=== PATIENT | male | born 1980 | race Hispanic/Latino ===

== ENCOUNTER 2019-05-18 04:48 | Emergency (ER) | payer OTHER, SELFPAY ==
--- NOTE | 2019-05-18 04:54 | DI.RAD.S_ITS ---
PROCEDURE: XR FINGER LT MIN 2V INDICATIONS: crush injury, tissue loss TECHNIQUE: AP hand, 2 views of the 4th finger(s) acquired. COMPARISON: None. FINDINGS: Bones: There is a comminuted, mildly to moderately displaced fracture of the distal aspect of the distal phalanx of the 4th finger. No additional fractures are seen. Soft tissues: Associated soft tissue injury is seen. IMPRESSION: Comminuted fracture of the distal aspect of the distal phalanx of the 4th finger. Dictated by: Levon Aj M.D. on 05/18/2019 at 8:46 Approved by: Levon Aj M.D. on 05/18/2019 at 8:47
[2019-05-18 04:55] VITALS: BP 137/105; PULSE 62; RESP 20; TEMP 36.8; O2SAT 94
[2019-05-18] MEDS: TET,DIPH,PERTUSS(ACELL),VAC/PF 0.5 ML SYRINGE IM (04:58)
--- NOTE | 2019-05-18 05:11 | ED.UPPEXIN ---
HPI - Extremity Injury (Upper) General Chief Complaint: Extremity Injury, Upper Stated Complaint: Left ring finger injury at work Time Seen by Provider: 05/18/19 04:51 Source: patient Mode of arrival: Ambulatory Limitations: no limitations History of Present Illness HPI narrative: 38-year-old male nonsmoker with noncontributory medical history presents with a work related injury that was suffered just prior to arrival. He crushed the tip of his left ring finger when a large heavy slab of wood fell down. He denies any other injury and has a full but painful range of motion of left hand. He is right-hand dominant. His tetanus will need to be updated today. He presented with his hand wrapped in a dressing. MD complaint: injury to: left Onset (ago): minute(s) Other Extremity Injury: Left: fingers Other injuries: none Handedness: right Place: work Severity: moderate Relieving factors: rest Exacerbating factors: movement of extremity Context: direct blow Associated symptoms: denies other symptoms Treatments prior to arrival: bandage Related Data Previous Rx's Medication Instructions Recorded cephalexin [Keflex] 500 mg PO QID 7 Days #28 cap 05/18/19 hydrocodone-acetaminophen 1 tab PO Q4-6H PRN #10 tab 05/18/19 Review of Systems Constitutional Constitutional: Denies chills, Denies fatigue, Denies fever(s), Denies frequent falls, Denies lethargy and Denies weakness Eyes Eyes: Denies change in vision, Denies eye discharge, Denies irritation and Denies loss of vision ENT Ears, Nose, Mouth, and Throat: Denies change in voice, Denies dizziness, Denies neck pain, Denies sore throat and Denies throat swelling Cardiovascular Cardiovascular: Denies chest pain, Denies irregular heart rhythm, Denies lightheadedness, Denies palpitations, Denies dyspnea, Denies dyspnea on exertion and Denies orthopnea Respiratory Respiratory: Denies cough, Denies dyspnea, Denies dyspnea on exertion and Denies wheezing Gastrointestinal Gastrointestinal: Denies abdominal pain, Denies change in bowel habits, Denies diarrhea, Denies nausea and Denies vomiting Genitourinary Genitourinary: Denies hematuria, Denies flank pain, Denies urinary incontinence and Denies urinary urgency Musculoskeletal Musculoskeletal: Denies back pain, Reports limited range of motion, Denies muscle weakness, Denies neck pain, Denies numbness and Denies tingling Integumentary/Breasts Skin/Breast: Denies pruritus, Denies erythema, Denies rash and Reports wounds Neurologic Neurologic: Denies behavioral changes, Denies confusion, Denies dizziness, Denies frequent falls, Denies loss of vision, Denies numbness, Denies tingling and Denies weakness Psychiatric Psychiatric: Denies anxiety, Denies behavioral changes, Denies confusion, Denies depression, Denies homicidal ideation and Denies suicidal ideation Endocrine Endocrine: Denies fatigue, Denies flushing and Denies palpitations Hematologic/Lymphatic Hematologic/Lymphatic: Denies easy bruising Allergic/Immunologic Allergic/Immunologic: Denies urticaria, Denies throat swelling and Denies wheezing Patient History Social History Smoking Status: Never smoker Smoking Status: Never smoker alcohol intake frequency: a few times a month Substance Use Type: does not use Exam Narrative Exam Narrative: GEN: AOx3 and in mild distress EYES: Pupils are equal, round, and reactive to light and accommodation. Extraoccular muscles are intact bilaterally. There is no subconjunctival hemorrhage or exudate. CHEST: Lungs are clear to auscultation bilaterally and free of wheezes, rales, or rhonchi. Heart rate is regular rhythm, there are no murmurs, clicks, rubs, or gallops. There is no chest wall tenderness. ABD: Abdomen is soft and nontender. There is no guarding or rebound. Bowel sounds are normal in all 4 quadrants. There is no mass or organomegaly. EXT: Tip avulsion to L 4th finger. No nail or nailbed involvement. No exposed bone. 2.5x1cm area of soft tissue loss with some active bleeding. Full painless ROM of all extremities with no loss of sensation or strength. SKIN: Warm, pink, and dry. No erythema or rash Initial Vital Signs Initial Vital Signs: Vital Signs Temperature 98.2 F 05/18/19 04:55 Pulse Rate 62 05/18/19 04:55 Respiratory Rate 20 05/18/19 04:55 Blood Pressure 137/105 H 05/18/19 04:55 Pulse Oximetry 94 05/18/19 04:55 Procedures Laceration Repair Laceration 1: Site: hand Side (If applicable): left Size (cm): 2.5 Description: irregular and other (tissue loss, sutures for hemostasis only) Depth: involves muscle layer Pre-repair: wound explored and irrigated extensively Nerve Block Nerve Block 1: Time out performed: Yes Local Anesthetic: lidocaine 1% and with bicarb Amount of anesthesia used (mL): 3 Side: left Nerve Blocks: digital Procedure Successful: Yes Patient Tolerated Procedure: Well Complications: none Course Course Course Narrative: L&I form completed and submitted to Medical Records Activity Sheet completed, submitted to Medical Records and copy given to patient Orders Ordered: ED Orders 05/18/19 04:54 XR finger LT min 2V Stat Discontinued Medications Hydrocodone Bitart/Acetaminophen (Vicodin 5/325 Prepack) 1 bottle MISC SEEINSTR ONE Stop: 05/18/19 05:55 Cefazolin Sodium (Keflex 250 Mg Prepack) 1 bottle MISC SEEINSTR ONE Stop: 05/18/19 05:55 Diphtheria/Tetanus/Acell Pertussis (Adacel) 0.5 ml IM .ONCE ONE Stop: 05/18/19 04:55 Last Admin: 05/18/19 04:58 Dose: 0.5 ml Documented by: DOLLY Lidocaine/Sodium Bicarbonate (Buffered Lidocaine 10 Ml Syr) 10 ml INJ NOW ONE Stop: 05/18/19 04:55 Consultations Consultation #1: call to Dr. Conley (ortho) for discussion regarding plan and care. We are in agreement that careful cleaning, achievement of hemostasis, update tetanus, Keflex, dressing and follow up are indicated. She will see him in clinic next week. Vital Signs Vital signs: Vital Signs - 8 hr 05/18/19 04:55 Temperature 98.2 F Pulse Rate 62 Respiratory Rate 20 Blood Pressure 137/105 H Pulse Oximetry 94 MDM - Extremity Injury (Upper) Imaging Data Finger Xray: Attestation: I personally reviewed and interpreted this imaging study as follows: My Impression: Distal Phalanx Fracture Left 4th finger Discharge Plan Departure Patient Disposition: Home Clinical Impression: Avulsion of finger tip, Open fracture of tuft of distal phalanx of finger Discharge Date/Time: 05/18/19 06:14 Instructions: DI for Avulsion Laceration (Not Requiring Sutures) Activity Restrictions/Additional Instructions: *You have been diagnosed with [finger tip avulsion left ring finger] *What to do: *Take medications as directed: Your prescriptions have been electronically transmitted to *Follow up with your primary care provider in 2-3 days, call for an appointment. Let them know you were seen in the Emergency Department and that we ask that you be seen in follow up *Return to ER if you should have any new, worsening or concerning symptoms, such as [increasing pain, drainage, swelling of hand, fever > 101F or any other bothersome symptoms ] Prescriptions: New hydrocodone-acetaminophen 5-325 mg tablet 1 tab PO Q4-6H PRN (Reason: pain) Qty: 10 RF: 0 cephalexin [Keflex] 500 mg capsule 500 mg PO QID 7 Days Qty: 28 RF: 0 Referrals: Olga Lidia Conley MD [Physician] -
[2019-05-18] MEDS: cephALEXin 250 MG PREPACK 1 BOTTLE MISC (06:03)
[2019-05-18] MEDS: HYDROCODONE/ACET 5/325 PREPACK 1 BOTTLE MISC (06:03)
== END 2019-05-18 06:14 | disposition home or self-care (01) ==
PROVIDERS: Emergency Provider Emergency Medicine
DX: S62.635B Displaced fracture of distal phalanx of left ring finger, initial encounter for open fracture (principal); W20.8XXA Other cause of strike by thrown, projected or falling object, initial encounter; Y99.0 Civilian activity done for income or pay; Z23 Encounter for immunization
CPT/HCPCS: 12001; 64450; 73140; 90471; 99281; 99283; 90715